=== PATIENT | male | born 1950 | race Caucasian/White ===

== ENCOUNTER 2018-02-14 10:46 | Emergency (ER) | payer MEDICARE, MEDICAID ==
[~2018-02-14] VITALS: Ht 180.3 cm; Wt 75.0 kg
[~2018-02-14 10:46] MED LIST: ASPI-1264 PO; MULT-1131 PO
[2018-02-14 13:10] LABS: CLARITY,URINE CLEAR (Clear); COLOR,URINE YELLOW (Yellow); GLUCOSE, URINE NEGATIVE (Neg); KETONES,URINE NEGATIVE (Neg); LEUKOCYTE ESTERASE ,URINE NEGATIVE (Neg); NITRITES, URINE NEGATIVE (Neg); OCCULT BLOOD,URINE LARGE (Neg); PH,URINE 6.5 (4.8-8.0); PROTEIN,URINE NEGATIVE (Neg); UA COLLECTION TYPE STRAIGHT CATH; UROBILINOGEN,URINE 0.2 E.U/dL (0.2-1.0)
[2018-02-14 13:17] LABS: MUCUS STRANDS NONE SEEN /LPF (Neg); SQUAMOUS EPITHELIAL CELL,UR NONE SEEN /LPF (FEW)
[2018-02-14 13:19] LABS: RBC,URINE 20-50 /HPF (0-2)
[2018-02-14 13:21] LABS: BACTERIA,URINE FEW /HPF (Neg); WBC,URINE 0-4 /HPF (0-4)
[2018-02-14 13:44] VITALS: BP 132/89
[2018-02-16] MEDS ORDERED: SULF1TAB49 PO (21:30)
== END 2018-02-14 13:47 | disposition home or self-care (01) ==
LOC: ER 10:46
DX: R33.9 Retention of urine, unspecified (principal); R31.9 Hematuria, unspecified; K21.9 Gastro-esophageal reflux disease without esophagitis; G89.29 Other chronic pain; Z90.49 Acquired absence of other specified parts of digestive tract; Z98.890 Other specified postprocedural states; Z79.82 Long term (current) use of aspirin; Z79.899 Other long term (current) drug therapy
CPT/HCPCS: 81001; 99285; P9612

== ENCOUNTER 2018-02-19 20:16 | Emergency (ER) | payer MEDICARE, MEDICAID ==
[~2018-02-19] VITALS: Ht 180.3 cm; Wt 75.0 kg
[~2018-02-19 20:16] MED LIST changes: +SULF1TAB49 PO
[2018-02-19 20:19] VITALS: BP 130/78
[2018-02-19] MEDS ORDERED: normal saline 1000ML IV soln IVB ONE (20:55)
[2018-02-19 21:12] LABS: BASOPHILS % (AUTO) 0.1 % (0-1); EOSINOPHILS # (AUTO) 0.9 X10'3 (0-0.9); EOSINOPHILS % (AUTO) 8.9 % (0-6); HEMATOCRIT 43.3 % (42.0-52.0); HEMOGLOBIN 14.6 g/dl (14.0-17.9); LYMPHOCYTES # (AUTO) 1.3 X10'3 (1.1-4.8); LYMPHOCYTES % (AUTO) 12.4 % (21-51); MEAN CORPUSCULAR HEMOGLOBIN 32.5 PG (27.0-31.0); MEAN CORPUSCULAR HGB CONC 33.8 % (33.0-36.5); MEAN CORPUSCULAR VOLUME 96.1 FL (78-98); MEAN PLATELET VOLUME 7.1 FL (7.4-10.4); MONOCYTES # (AUTO) 0.9 X10'3 (0-0.9); MONOCYTES % (AUTO) 8.5 % (2-12); NEUTROPHILS # (AUTO) 7.2 X10'3 (1.8-7.7); NEUTROPHILS % (AUTO) 70.1 % (42-75); PLATELET COUNT 363 X10'3 (140-440); RED CELL DISTRIBUTION WIDTH 13.7 % (11.5-14.5); WHITE BLOOD COUNT 10.3 X10'3 (4.5-11.0)
[2018-02-19 21:30] LABS: ALANINE AMINOTRANSFERASE 78 U/L (12-78); ALBUMIN 3.4 G/DL (3.4-5.0); ALBUMIN/GLOBULIN RATIO 0.9 (1.1-1.5); ALKALINE PHOSPHATASE 96 IU/L (46-116); ANION GAP 11 (8-16); ASPARTATE AMINO TRANSFERASE 36 U/L (10-37); BILIRUBIN,TOTAL 0.3 MG/DL (0.1-1.0); BLOOD UREA NITROGEN 16 MG/DL (7-18); BUN/CREATININE RATIO 13.8 (5.4-32.0); CALCIUM 8.4 MG/DL (8.5-10.1); CHLORIDE 105 MMOL/L (99-107); CREATININE 1.16 MG/DL (0.60-1.10); GLUCOSE 149 MG/DL (70-104); POTASSIUM 3.7 MMOL/L (3.5-5.1); SODIUM 140 MMOL/L (135-145); TOTAL CARBON DIOXIDE 24.2 MMOL/L (24-32); eGFR 63 ML/MIN
[2018-02-19 21:36] LABS: PARTIAL THROMBOPLASTIN TIME 29 SECONDS (22-32); PROTHROMBIN TIME 10.2 SECONDS (9.0-12.0)
[2018-02-19] MEDS ORDERED: iohexol 300mg/ml 100ml inj. ONE (21:38)
[2018-02-19 21:48] LABS: CLARITY,URINE CLOUDY (Clear); COLOR,URINE AMBER (Yellow); GLUCOSE, URINE NEGATIVE (Neg); KETONES,URINE NEGATIVE (Neg); LEUKOCYTE ESTERASE ,URINE TRACE (Neg); OCCULT BLOOD,URINE LARGE (Neg); PROTEIN,URINE >=300 mg/dl (Neg); UROBILINOGEN,URINE 0.2 E.U/dL (0.2-1.0)
[2018-02-19 21:49] LABS: UA COLLECTION TYPE FOLEY CATH
[2018-02-19 21:51] LABS: NITRITES, URINE NEGATIVE (Neg)
[2018-02-19 21:53] LABS: AMORPHOUS URATES 2+; BACTERIA,URINE FEW /HPF (Neg); RBC,URINE TNTC /HPF (0-2); SQUAMOUS EPITHELIAL CELL,UR FEW /LPF (FEW)
[2018-02-19 21:54] LABS: WBC,URINE 0-4 /HPF (0-4)
== END 2018-02-19 23:18 | disposition home or self-care (01) ==
LOC: ER 20:17
DX: R31.0 Gross hematuria (principal); K21.9 Gastro-esophageal reflux disease without esophagitis; G89.29 Other chronic pain; N18.9 Chronic kidney disease, unspecified; Z90.49 Acquired absence of other specified parts of digestive tract; Z98.890 Other specified postprocedural states; Z79.82 Long term (current) use of aspirin; Z79.899 Other long term (current) drug therapy
CPT/HCPCS: 36415; 74177; 80053; 81001; 85025; 85610; 85730; 87088; 99285; J7030; Q9967

== ENCOUNTER 2019-05-02 05:32 | Emergency (ER) | payer MEDICARE, MEDICAID ==
[~2019-05-02] VITALS: Ht 180.3 cm; Wt 75.0 kg
[~2019-05-02 05:32] MED LIST changes: -ASPI-1264 PO; +ATOR40TA PO; +COMMODE; +DOCU-28 PO; +FLO0.4C PO; +HYDR-4383 PO; -SULF1TAB49 PO
[2019-05-02] MEDS ORDERED: ringers solution, lacted 1,000 ML IV ONE (06:35)
[2019-05-02 06:42] LABS: CLARITY,URINE TURBID (Clear); COLOR,URINE YELLOW (Yellow); GLUCOSE, URINE NEGATIVE (Neg); KETONES,URINE NEGATIVE (Neg); LEUKOCYTE ESTERASE ,URINE MODERATE (Neg); NITRITES, URINE POSITIVE (Neg); OCCULT BLOOD,URINE TRACE-INTACT (Neg); PH,URINE 6.5 (4.8-8.0); PROTEIN,URINE NEGATIVE (Neg); UROBILINOGEN,URINE 0.2 E.U/dL (0.2-1.0)
[2019-05-02 06:45] LABS: UA COLLECTION TYPE OTHER
[2019-05-02 07:04] LABS: BASOPHILS # (AUTO) 0.1 X10'3 (0-0.2); BASOPHILS % (AUTO) 0.6 % (0-1); EOSINOPHILS # (AUTO) 0.4 X10'3 (0-0.9); EOSINOPHILS % (AUTO) 4.7 % (0-6); HEMATOCRIT 41.2 % (42.0-52.0); LYMPHOCYTES # (AUTO) 1.3 X10'3 (1.1-4.8); LYMPHOCYTES % (AUTO) 14.3 % (21-51); MEAN CORPUSCULAR HEMOGLOBIN 31.5 PG (27.0-31.0); MEAN CORPUSCULAR VOLUME 92.7 FL (78-98); MEAN PLATELET VOLUME 6.8 FL (7.4-10.4); MONOCYTES % (AUTO) 11.2 % (2-12); NEUTROPHILS # (AUTO) 6.3 X10'3 (1.8-7.7); NEUTROPHILS % (AUTO) 69.2 % (42-75); PLATELET COUNT 475 X10'3 (140-440); RED BLOOD COUNT 4.45 X10'6 (4.70-6.10); RED CELL DISTRIBUTION WIDTH 13.1 % (11.5-14.5); WHITE BLOOD COUNT 9.1 X10'3 (4.5-11.0)
[2019-05-02 07:10] LABS: PARTIAL THROMBOPLASTIN TIME 31 SECONDS (22-32)
[2019-05-02 07:11] LABS: ALANINE AMINOTRANSFERASE 38 U/L (12-78); ALBUMIN 3.2 G/DL (3.4-5.0); ALBUMIN/GLOBULIN RATIO 0.8 (1.1-1.5); ALKALINE PHOSPHATASE 89 IU/L (46-116); ANION GAP 7 (8-16); ASPARTATE AMINO TRANSFERASE 21 U/L (10-37); BILIRUBIN,TOTAL 0.4 MG/DL (0.1-1.0); BLOOD UREA NITROGEN 16 MG/DL (7-18); BUN/CREATININE RATIO 14.4 (5.4-32.0); CALCIUM 8.9 MG/DL (8.5-10.1); CHLORIDE 108 MMOL/L (99-107); CREATININE 1.11 MG/DL (0.60-1.10); GLUCOSE 98 MG/DL (70-104); POTASSIUM 3.8 MMOL/L (3.5-5.1); SODIUM 143 MMOL/L (135-145); TOTAL CARBON DIOXIDE 27.8 MMOL/L (24-32); TOTAL PROTEIN 7.4 G/DL (6.4-8.2); eGFR 66 ML/MIN
[2019-05-02 07:46] LABS: BACTERIA,URINE 2+ /HPF (Neg); RBC,URINE 0-2 /HPF (0-2); SQUAMOUS EPITHELIAL CELL,UR NONE SEEN /LPF (FEW)
[2019-05-02 07:47] LABS: MUCUS STRANDS MANY /LPF (Neg)
[2019-05-02 07:50] LABS: AMORPHOUS PHOSPHATES 2+; WBC,URINE 50-100 /HPF (0-4)
[2019-05-02] MEDS ORDERED: CefTRIAXone 2gm/D5W 50ml 50 ML IV SCH (08:10)
[2019-05-02] MEDS ORDERED: CEPH-572 PO (08:10)
[2019-05-02] MEDS ORDERED: CefTRIAXone 2gm/D5W 50ml 50 ML IV ONE (08:13)
[2019-05-02 08:54] VITALS: BP 123/59
== END 2019-05-02 08:56 | disposition home or self-care (01) ==
LOC: ER 05:33
DX: N39.0 Urinary tract infection, site not specified (principal); R42 Dizziness and giddiness; G80.9 Cerebral palsy, unspecified; K21.9 Gastro-esophageal reflux disease without esophagitis; G89.29 Other chronic pain; F41.9 Anxiety disorder, unspecified; R79.1 Abnormal coagulation profile; Z90.49 Acquired absence of other specified parts of digestive tract; Z98.890 Other specified postprocedural states; Z79.899 Other long term (current) drug therapy
CPT/HCPCS: 36415; 71045; 80053; 81001; 83605; 83735; 84145; 85025; 85610; 85730; 87040; 87077; 87088; 87186; 87502; 87503; 93005; 96361; 96365; 99284; J0696; J7120

== ENCOUNTER 2019-05-04 13:04 | Emergency (ER) | payer MEDICARE, MEDICAID ==
[~2019-05-04] VITALS: Ht 180.3 cm; Wt 74.1 kg
[~2019-05-04 13:04] MED LIST changes: +CEPH-572 PO
[2019-05-04] MEDS ORDERED: cephalexin 250mg capsule PO ONE (16:05)
[2019-05-04 16:14] VITALS: BP 140/71
== END 2019-05-04 18:36 | disposition home or self-care (01) ==
LOC: ER 13:05
DX: R20.8 Other disturbances of skin sensation (principal); M79.604 Pain in right leg; G80.9 Cerebral palsy, unspecified; G89.29 Other chronic pain; F41.9 Anxiety disorder, unspecified; K21.9 Gastro-esophageal reflux disease without esophagitis; Z90.49 Acquired absence of other specified parts of digestive tract; Z98.890 Other specified postprocedural states; Z79.899 Other long term (current) drug therapy
CPT/HCPCS: 93922; 93926; 99284

== ENCOUNTER 2019-05-21 05:43 | Emergency (ER) | payer MEDICARE, MEDICAID ==
[~2019-05-21] VITALS: Ht 180.3 cm; Wt 75.0 kg
[~2019-05-21 05:43] MED LIST changes: -CEPH-572 PO
[2019-05-21 07:18] LABS: BASOPHILS % (AUTO) 0.3 % (0-1); EOSINOPHILS # (AUTO) 0.3 X10'3 (0-0.9); EOSINOPHILS % (AUTO) 2.6 % (0-6); HEMATOCRIT 38.8 % (42.0-52.0); HEMOGLOBIN 13.3 g/dl (14.0-17.9); LYMPHOCYTES # (AUTO) 0.9 X10'3 (1.1-4.8); LYMPHOCYTES % (AUTO) 7.5 % (21-51); MEAN CORPUSCULAR HEMOGLOBIN 31.6 PG (27.0-31.0); MEAN CORPUSCULAR HGB CONC 34.3 g/dL (33.0-36.5); MEAN CORPUSCULAR VOLUME 92.2 FL (78-98); MEAN PLATELET VOLUME 6.5 FL (7.4-10.4); MONOCYTES # (AUTO) 0.9 X10'3 (0-0.9); MONOCYTES % (AUTO) 7.8 % (2-12); NEUTROPHILS # (AUTO) 9.6 X10'3 (1.8-7.7); NEUTROPHILS % (AUTO) 81.8 % (42-75); PLATELET COUNT 450 X10'3 (140-440); RED BLOOD COUNT 4.21 X10'6 (4.70-6.10); WHITE BLOOD COUNT 11.8 X10'3 (4.5-11.0)
[2019-05-21 07:29] LABS: PARTIAL THROMBOPLASTIN TIME 33 SECONDS (22-32)
[2019-05-21 07:32] LABS: ALANINE AMINOTRANSFERASE 26 U/L (12-78); ALBUMIN 3.2 G/DL (3.4-5.0); ALBUMIN/GLOBULIN RATIO 0.7 (1.1-1.5); ALKALINE PHOSPHATASE 86 IU/L (46-116); ANION GAP 8 (8-16); ASPARTATE AMINO TRANSFERASE 19 U/L (10-37); BILIRUBIN,TOTAL 0.6 MG/DL (0.1-1.0); BLOOD UREA NITROGEN 29 MG/DL (7-18); BUN/CREATININE RATIO 25.2 (5.4-32.0); CALCIUM 9.4 MG/DL (8.5-10.1); CHLORIDE 103 MMOL/L (99-107); CREATININE 1.15 MG/DL (0.60-1.10); GLUCOSE 99 MG/DL (70-104); POTASSIUM 4.4 MMOL/L (3.5-5.1); SODIUM 137 MMOL/L (135-145); TOTAL CARBON DIOXIDE 25.9 MMOL/L (24-32); TOTAL PROTEIN 7.7 G/DL (6.4-8.2); eGFR 63 ML/MIN
[2019-05-21] MEDS ORDERED: enoxaparin 100mg/ml syringe SUBCUT ONE (08:15)
[2019-05-21] MEDS ORDERED: APIX5TAB3 PO (08:38)
[2019-05-21 08:56] VITALS: BP 121/79
== END 2019-05-21 09:02 | disposition home or self-care (01) ==
LOC: ER 05:44
DX: I82.401 Acute embolism and thrombosis of unspecified deep veins of right lower extremity (principal); C79.89 Secondary malignant neoplasm of other specified sites; N18.9 Chronic kidney disease, unspecified; K21.9 Gastro-esophageal reflux disease without esophagitis; G89.29 Other chronic pain; F41.9 Anxiety disorder, unspecified; Z90.49 Acquired absence of other specified parts of digestive tract; Z85.51 Personal history of malignant neoplasm of bladder; Z98.890 Other specified postprocedural states; Z79.01 Long term (current) use of anticoagulants; Z79.899 Other long term (current) drug therapy
CPT/HCPCS: 36415; 80053; 85025; 85610; 85730; 93971; 96372; 99285; J1650

== ENCOUNTER 2019-05-24 02:23 | Emergency (ER) | payer MEDICARE, MEDICAID ==
[~2019-05-24] VITALS: Ht 180.3 cm; Wt 75.0 kg
[~2019-05-24 02:23] MED LIST changes: +APIX5TAB3 PO
--- NOTE | 2019-05-24 02:40 | NUR ---
EKG DONE BY ULI HERNANDEZ
--- NOTE | 2019-05-24 02:53 | NUR ---
CHEST X RAY AT BEDSIDE
[2019-05-24 03:01] LABS: BASOPHILS # (AUTO) 0.1 X10'3 (0-0.2); BASOPHILS % (AUTO) 0.6 % (0-1); EOSINOPHILS # (AUTO) 0.5 X10'3 (0-0.9); EOSINOPHILS % (AUTO) 5.5 % (0-6); HEMATOCRIT 35.1 % (42.0-52.0); HEMOGLOBIN 12.3 g/dl (14.0-17.9); LYMPHOCYTES # (AUTO) 1.5 X10'3 (1.1-4.8); LYMPHOCYTES % (AUTO) 15.8 % (21-51); MEAN CORPUSCULAR HEMOGLOBIN 32.1 PG (27.0-31.0); MEAN CORPUSCULAR VOLUME 91.7 FL (78-98); MEAN PLATELET VOLUME 6.4 FL (7.4-10.4); MONOCYTES # (AUTO) 0.9 X10'3 (0-0.9); MONOCYTES % (AUTO) 9.7 % (2-12); NEUTROPHILS # (AUTO) 6.5 X10'3 (1.8-7.7); NEUTROPHILS % (AUTO) 68.4 % (42-75); PLATELET COUNT 488 X10'3 (140-440); RED BLOOD COUNT 3.83 X10'6 (4.70-6.10); RED CELL DISTRIBUTION WIDTH 12.8 % (11.5-14.5); WHITE BLOOD COUNT 9.4 X10'3 (4.5-11.0)
[2019-05-24 03:13] LABS: ALANINE AMINOTRANSFERASE 37 U/L (12-78); ALBUMIN 2.8 G/DL (3.4-5.0); ALBUMIN/GLOBULIN RATIO 0.6 (1.1-1.5); ALKALINE PHOSPHATASE 83 IU/L (46-116); ANION GAP 9 (8-16); ASPARTATE AMINO TRANSFERASE 28 U/L (10-37); BILIRUBIN,TOTAL 0.3 MG/DL (0.1-1.0); BLOOD UREA NITROGEN 23 MG/DL (7-18); CALCIUM 8.9 MG/DL (8.5-10.1); CHLORIDE 106 MMOL/L (99-107); GLUCOSE 99 MG/DL (70-104); POTASSIUM 3.8 MMOL/L (3.5-5.1); SODIUM 140 MMOL/L (135-145); TOTAL CARBON DIOXIDE 24.8 MMOL/L (24-32); TOTAL PROTEIN 7.2 G/DL (6.4-8.2); eGFR 74 ML/MIN
--- NOTE | 2019-05-24 03:20 | NUR ---
PT RESTING PEACEFULLY ON HIS RIGHT SIDE
--- NOTE | 2019-05-24 05:20 | NUR ---
POSITIONED PT TO HIS RIGHT SIDE . AND DRAINED HIS UROSTOMY BAG 20CC OUTPUT Addendum: 05/24/19 at 0522 by LSTOCKTON REPOSITONED PT TO HIS LEFT SIDE ABD DRAIN UROSTOMY BAG 200 CC OF OUTPUT URINE NOTED
[2019-05-24 05:45] VITALS: BP 105/59
--- NOTE | 2019-05-24 05:46 | NUR ---
3 HR TROPONIN DRAWN AND SENT TO LAB
--- NOTE | 2019-05-24 05:47 | NUR ---
PT INSIGHTS MANAGER AMBIKA HAS REMAINED AT THE BEDSIDE THE ENTIRE TIME PT HAS BEEN IN THE ER. BENNY RAMIREZ ALSO WAS PRESANT ON UNIT TILL ABOUT 315 AM BEFORE LEAVING FOR HOME SHE WAS A GREAT HISTORIAN ON PT BEHALF AND CAN BE REACHED AT [phone]
== END 2019-05-24 11:35 | disposition home or self-care (01) ==
LOC: ER 02:23
DX: R07.89 Other chest pain (principal); K21.9 Gastro-esophageal reflux disease without esophagitis; G89.29 Other chronic pain; Z86.718 Personal history of other venous thrombosis and embolism; Z90.49 Acquired absence of other specified parts of digestive tract; Z98.890 Other specified postprocedural states; Z79.899 Other long term (current) drug therapy
CPT/HCPCS: 36415; 71045; 80053; 84484; 85025; 93005; 99285

== ENCOUNTER 2019-06-03 03:19 | Emergency (ER) | payer MEDICARE, MEDICAID ==
[~2019-06-03] VITALS: Ht 177.8 cm; Wt 74.1 kg
[2019-06-03] MEDS ORDERED: ketorolac trometh. 30mg/ml inj. IV ONE (03:30)
[2019-06-03] MEDS ORDERED: normal saline 1000ML IV soln IVB ONE (03:30)
[2019-06-03 03:56] LABS: BASOPHILS # (AUTO) 0.1 X10'3 (0-0.2); BASOPHILS % (AUTO) 0.6 % (0-1); EOSINOPHILS # (AUTO) 0.3 X10'3 (0-0.9); EOSINOPHILS % (AUTO) 3.1 % (0-6); HEMATOCRIT 34.4 % (42.0-52.0); HEMOGLOBIN 11.8 g/dl (14.0-17.9); LYMPHOCYTES % (AUTO) 9.4 % (21-51); MEAN CORPUSCULAR HEMOGLOBIN 31.2 PG (27.0-31.0); MEAN CORPUSCULAR HGB CONC 34.4 g/dL (33.0-36.5); MEAN CORPUSCULAR VOLUME 90.8 FL (78-98); MEAN PLATELET VOLUME 6.2 FL (7.4-10.4); MONOCYTES # (AUTO) 1.2 X10'3 (0-0.9); MONOCYTES % (AUTO) 11.8 % (2-12); NEUTROPHILS # (AUTO) 7.7 X10'3 (1.8-7.7); NEUTROPHILS % (AUTO) 75.1 % (42-75); PLATELET COUNT 548 X10'3 (140-440); RED BLOOD COUNT 3.79 X10'6 (4.70-6.10); WHITE BLOOD COUNT 10.2 X10'3 (4.5-11.0)
[2019-06-03 04:07] LABS: ALANINE AMINOTRANSFERASE 19 U/L (12-78); ALBUMIN 2.8 G/DL (3.4-5.0); ALBUMIN/GLOBULIN RATIO 0.7 (1.1-1.5); ALKALINE PHOSPHATASE 72 IU/L (46-116); ANION GAP 8 (8-16); ASPARTATE AMINO TRANSFERASE 22 U/L (10-37); BILIRUBIN,TOTAL 0.5 MG/DL (0.1-1.0); BLOOD UREA NITROGEN 19 MG/DL (7-18); BUN/CREATININE RATIO 17.3 (5.4-32.0); CALCIUM 9.1 MG/DL (8.5-10.1); CHLORIDE 105 MMOL/L (99-107); GLUCOSE 103 MG/DL (70-104); SODIUM 139 MMOL/L (135-145); TOTAL CARBON DIOXIDE 26.1 MMOL/L (24-32); TOTAL PROTEIN 6.9 G/DL (6.4-8.2); eGFR 67 ML/MIN
[2019-06-03 04:11] LABS: CLARITY,URINE CLOUDY (Clear); COLOR,URINE YELLOW (Yellow); GLUCOSE, URINE NEGATIVE (Neg); KETONES,URINE NEGATIVE (Neg); LEUKOCYTE ESTERASE ,URINE LARGE (Neg); NITRITES, URINE POSITIVE (Neg); OCCULT BLOOD,URINE LARGE (Neg); PROTEIN,URINE TRACE mg/dl (Neg); UROBILINOGEN,URINE 0.2 E.U/dL (0.2-1.0)
[2019-06-03 04:18] LABS: UA COLLECTION TYPE OTHER
[2019-06-03 04:21] LABS: BACTERIA,URINE 2+ /HPF (Neg); RENAL CELLS, URINE FEW /HPF; SQUAMOUS EPITHELIAL CELL,UR NONE SEEN /LPF (FEW)
--- NOTE | 2019-06-03 04:30 | NUR ---
VASCULAR AT BEDSIDE
[2019-06-03] MEDS ORDERED: orphenadrine citrate 60mg/2ml inj. IM ONE (04:35)
[2019-06-03] MEDS ORDERED: CefTRIAXone 2gm/D5W 50ml 50 ML IV ONE (04:35)
[2019-06-03] MEDS ORDERED: magnesium 2GM in 50ml NS 50 ML IV ONE (04:35)
[2019-06-03] MEDS ORDERED: CEPH250T PO (04:56)
[2019-06-03 04:57] VITALS: BP 112/66
== END 2019-06-03 05:13 | disposition home or self-care (01) ==
LOC: ER 03:19
DX: R25.2 Cramp and spasm (principal); K21.9 Gastro-esophageal reflux disease without esophagitis; G89.29 Other chronic pain; F41.9 Anxiety disorder, unspecified; Z85.9 Personal history of malignant neoplasm, unspecified; Z86.718 Personal history of other venous thrombosis and embolism; Z90.49 Acquired absence of other specified parts of digestive tract; Z98.890 Other specified postprocedural states; Z79.01 Long term (current) use of anticoagulants; Z79.899 Other long term (current) drug therapy
CPT/HCPCS: 36415; 80053; 81001; 83735; 85025; 87077; 87088; 87186; 93971; 96365; 96372; 96375; 99284; J0696; J1885; J2360; J3475; J7030

== ENCOUNTER 2019-07-21 06:54 | Day surgery (SDC) | payer MEDICARE, MEDICAID ==
[~2019-07-21] VITALS: Ht 180.3 cm; Wt 66.8 kg
[2019-07-21] MEDS ORDERED: ceFAZolin 1GM/D5W- ADD-VANTAGE 50 ML IV ONE (07:30)
[2019-07-21] MEDS ORDERED: normal saline 1000ml 1,000 ML IV PRN (07:30)
[2019-07-21 08:19] LABS: BASOPHILS # (AUTO) 0.1 X10'3 (0-0.2); BASOPHILS % (AUTO) 1.2 % (0-1); EOSINOPHILS # (AUTO) 1.1 X10'3 (0-0.9); EOSINOPHILS % (AUTO) 9.1 % (0-6); LYMPHOCYTES # (AUTO) 0.8 X10'3 (1.1-4.8); LYMPHOCYTES % (AUTO) 6.8 % (21-51); MEAN CORPUSCULAR HEMOGLOBIN 29.3 PG (27.0-31.0); MEAN CORPUSCULAR HGB CONC 33.3 g/dL (33.0-36.5); MEAN CORPUSCULAR VOLUME 87.9 FL (78-98); MEAN PLATELET VOLUME 6.6 FL (7.4-10.4); MONOCYTES # (AUTO) 1.3 X10'3 (0-0.9); MONOCYTES % (AUTO) 10.9 % (2-12); NEUTROPHILS # (AUTO) 8.5 X10'3 (1.8-7.7); PLATELET COUNT 474 X10'3 (140-440); RED BLOOD COUNT 3.42 X10'6 (4.70-6.10); RED CELL DISTRIBUTION WIDTH 14.7 % (11.5-14.5); WHITE BLOOD COUNT 11.8 X10'3 (4.5-11.0)
[2019-07-21 08:29] LABS: ALBUMIN 3.3 G/DL (3.4-5.0); ANION GAP 11 (8-16); BLOOD UREA NITROGEN 92 MG/DL (7-18); BUN/CREATININE RATIO 11.2 (5.4-32.0); CALCIUM 8.9 MG/DL (8.5-10.1); CHLORIDE 104 MMOL/L (99-107); CREATININE 8.22 MG/DL (0.60-1.10); GLUCOSE 94 MG/DL (70-104); POTASSIUM 3.8 MMOL/L (3.5-5.1); SODIUM 137 MMOL/L (135-145); TOTAL CARBON DIOXIDE 21.8 MMOL/L (24-32); eGFR 7 ML/MIN
[2019-07-21 08:34] VITALS: BP 137/79
[2019-07-21] MEDS ORDERED: iohexol 300 MG/1 ML 50ml polymer ONE (08:43)
[2019-07-21] MEDS ORDERED: LIDOcaine 1%/PF 5ML 10 MG/ML VIAL ONE ×2 (08:43→09:53)
[2019-07-21] MEDS ORDERED: midazolam 2 mg/2 ml injection ONE ×2 (08:43→09:57)
[2019-07-21] MEDS ORDERED: fentaNYL/PF 50MCG/1 ML 2ML syringe ONE ×2 (08:43→09:57)
[2019-07-21 10:43] VITALS: BP 110/70
[2019-07-21 10:46] VITALS: BP 119/75
[2019-07-21 11:19] VITALS: BP 104/66
== END 2019-07-21 11:40 | disposition home or self-care (01) ==
LOC: MED 3N 06:54 → SSTAY O 06:54
PROVIDERS: ATTEND Radiology Vascular & Interventional Radiology
DX: N13.0 Hydronephrosis with ureteropelvic junction obstruction (principal); Z85.51 Personal history of malignant neoplasm of bladder; G80.9 Cerebral palsy, unspecified; Z98.890 Other specified postprocedural states; Z90.49 Acquired absence of other specified parts of digestive tract; Z79.899 Other long term (current) drug therapy; Z87.440 Personal history of urinary (tract) infections
CPT/HCPCS: 36415; 50432; 80048; 85025; 99152; 99153; J2250; J3010; Q9967; C1729; C1769

== ENCOUNTER 2019-08-04 06:26 | Day surgery (SDC) | payer MEDICARE, MEDICAID ==
[~2019-08-04] VITALS: Ht 180.3 cm; Wt 65.9 kg
[2019-08-04] VITALS (11 sets, daily range): BP systolic 90–109; BP diastolic 58–70
[~2019-08-04 06:26] MED LIST changes: -APIX5TAB3 PO; -COMMODE; -DOCU-28 PO; -FLO0.4C PO; -HYDR-4383 PO; -MULT-1131 PO
[2019-08-04] MEDS ORDERED: ceFAZolin 1GM/D5W- ADD-VANTAGE 50 ML IV ONE (07:05)
[2019-08-04] MEDS ORDERED: albumin 25% 100mL bottle x 1 IV PRN (07:05)
[2019-08-04] MEDS ORDERED: normal saline 1000ml 1,000 ML IV PRN (07:05)
[2019-08-04 07:47] LABS: BASOPHILS # (AUTO) 0.1 X10'3 (0-0.2); BASOPHILS % (AUTO) 0.7 % (0-1); EOSINOPHILS # (AUTO) 0.9 X10'3 (0-0.9); EOSINOPHILS % (AUTO) 6.9 % (0-6); HEMATOCRIT 25.9 % (42.0-52.0); HEMOGLOBIN 8.7 g/dl (14.0-17.9); LYMPHOCYTES # (AUTO) 0.9 X10'3 (1.1-4.8); LYMPHOCYTES % (AUTO) 7.1 % (21-51); MEAN CORPUSCULAR HEMOGLOBIN 29.4 PG (27.0-31.0); MEAN CORPUSCULAR HGB CONC 33.5 g/dL (33.0-36.5); MEAN PLATELET VOLUME 6.5 FL (7.4-10.4); MONOCYTES # (AUTO) 1.5 X10'3 (0-0.9); MONOCYTES % (AUTO) 11.9 % (2-12); NEUTROPHILS # (AUTO) 9.4 X10'3 (1.8-7.7); NEUTROPHILS % (AUTO) 73.4 % (42-75); PLATELET COUNT 460 X10'3 (140-440); RED BLOOD COUNT 2.94 X10'6 (4.70-6.10); RED CELL DISTRIBUTION WIDTH 15.2 % (11.5-14.5); WHITE BLOOD COUNT 12.8 X10'3 (4.5-11.0)
[2019-08-04] MEDS ORDERED: MELA3TAB11 PO (07:56)
[2019-08-04] MEDS ORDERED: ONDA8TAB6 PO (07:56)
[2019-08-04] MEDS ORDERED: MULT-1085 PO (07:56)
[2019-08-04] MEDS ORDERED: DOCU-148 PO (07:56)
[2019-08-04] MEDS ORDERED: HYDR-4353 PO (07:56)
[2019-08-04] MEDS ORDERED: RIVA20TA PO (07:56)
[2019-08-04 08:01] LABS: ALBUMIN 2.7 G/DL (3.4-5.0); ANION GAP 9 (8-16); BLOOD UREA NITROGEN 58 MG/DL (7-18); CALCIUM 8.7 MG/DL (8.5-10.1); CHLORIDE 102 MMOL/L (99-107); CREATININE 5.78 MG/DL (0.60-1.10); GLUCOSE 96 MG/DL (70-104); POTASSIUM 4.5 MMOL/L (3.5-5.1); SODIUM 134 MMOL/L (135-145); TOTAL CARBON DIOXIDE 22.9 MMOL/L (24-32); eGFR 10 ML/MIN
[2019-08-04] MEDS ORDERED: LIDOcaine 1%/PF 5ML 10 MG/ML VIAL ONE (08:36)
[2019-08-04] MEDS ORDERED: midazolam 2 mg/2 ml injection ONE (08:36)
[2019-08-04] MEDS ORDERED: iohexol 300 MG/1 ML 50ml polymer ONE (08:37)
[2019-08-04] MEDS ORDERED: fentaNYL/PF 50MCG/1 ML 2ML syringe ONE (08:37)
== END 2019-08-04 13:15 | disposition home or self-care (01) ==
LOC: SSTAY O 06:26 → MED 3N 06:26 → SSTAY O 13:15
PROVIDERS: ATTEND Radiology Vascular & Interventional Radiology
DX: Z43.6 Encounter for attention to other artificial openings of urinary tract (principal); N13.30 Unspecified hydronephrosis; G80.9 Cerebral palsy, unspecified; Z79.899 Other long term (current) drug therapy; Z85.51 Personal history of malignant neoplasm of bladder
CPT/HCPCS: 36415; 50435; 80048; 85025; C1729; J2250; J3010; Q9967

== ENCOUNTER 2019-09-17 14:12 | Inpatient (IN) | payer MEDICARE, MEDICAID ==
[~2019-09-17] VITALS: Ht 182.9 cm; Wt 68.2 kg
[~2019-09-17 14:12] MED LIST changes: +DOCU-148 PO; +HYDR-4353 PO; +LEVO250T58 PO; +MELA3TAB11 PO; +METH1TAB32 PO; +MULT-1085 PO; +ONDA8TAB6 PO; +RIVA20TA PO
[2019-09-17] MEDS ORDERED: normal saline 1000ML IV soln IVB ONE (14:35)
[2019-09-17] MEDS ORDERED: acetaminophen 325mg tablet PO ONE (14:45)
[2019-09-17] MEDS ORDERED: vancomycin/NS 1 GM ADD-VANTAGE 250 ML IV ONE (15:00)
[2019-09-17] MEDS ORDERED: piperacillin/tazo 3.375gm/50ml 50 ML IV ONE (15:00)
[2019-09-17 15:16] LABS: EOSINOPHILS # (AUTO) 0.1 X10'3 (0-0.9); EOSINOPHILS % (AUTO) 0.4 % (0-6); HEMOGLOBIN 8.8 g/dl (14.0-17.9)
[2019-09-17 15:18] LABS: BASOPHILS # (AUTO) 0.2 X10'3 (0-0.2); BASOPHILS % (AUTO) 0.8 % (0-1); HEMATOCRIT 27.3 % (42.0-52.0); LYMPHOCYTES # (AUTO) 0.9 X10'3 (1.1-4.8); LYMPHOCYTES % (AUTO) 3.7 % (21-51); MEAN CORPUSCULAR HEMOGLOBIN 28.1 PG (27.0-31.0); MEAN CORPUSCULAR HGB CONC 32.5 g/dL (33.0-36.5); MEAN CORPUSCULAR VOLUME 86.6 FL (78-98); MEAN PLATELET VOLUME 6.7 FL (7.4-10.4); MONOCYTES # (AUTO) 1.6 X10'3 (0-0.9); MONOCYTES % (AUTO) 6.8 % (2-12); NEUTROPHILS % (AUTO) 88.3 % (42-75); PLATELET COUNT 605 X10'3 (140-440); RED BLOOD COUNT 3.15 X10'6 (4.70-6.10); RED CELL DISTRIBUTION WIDTH 15.8 % (11.5-14.5); WHITE BLOOD COUNT 23.8 X10'3 (4.5-11.0)
[2019-09-17 15:33] LABS: ALANINE AMINOTRANSFERASE 21 U/L (12-78); ALBUMIN 2.6 G/DL (3.4-5.0); ALBUMIN/GLOBULIN RATIO 0.6 (1.1-1.5); ALKALINE PHOSPHATASE 75 IU/L (46-116); ANION GAP 10 (8-16); ASPARTATE AMINO TRANSFERASE 17 U/L (10-37); BILIRUBIN,TOTAL 0.5 MG/DL (0.1-1.0); BLOOD UREA NITROGEN 32 MG/DL (7-18); CALCIUM 8.7 MG/DL (8.5-10.1); CHLORIDE 102 MMOL/L (99-107); GLUCOSE 101 MG/DL (70-104); POTASSIUM 4.1 MMOL/L (3.5-5.1); SODIUM 137 MMOL/L (135-145); TOTAL CARBON DIOXIDE 24.8 MMOL/L (24-32); TOTAL PROTEIN 7.2 G/DL (6.4-8.2); eGFR 43 ML/MIN
[2019-09-17 15:38] LABS: CLARITY,URINE CLOUDY (Clear); COLOR,URINE YELLOW (Yellow); GLUCOSE, URINE NEGATIVE (Neg); KETONES,URINE NEGATIVE (Neg); LEUKOCYTE ESTERASE ,URINE LARGE (Neg); NITRITES, URINE NEGATIVE (Neg); OCCULT BLOOD,URINE LARGE (Neg); PROTEIN,URINE 100 mg/dl (Neg); UROBILINOGEN,URINE 0.2 E.U/dL (0.2-1.0)
[2019-09-17 15:43] LABS: UA COLLECTION TYPE OTHER
[2019-09-17 15:44] LABS: WBC,URINE TNTC /HPF (0-4)
[2019-09-17 15:45] LABS: BACTERIA,URINE 3+ /HPF (Neg); MUCUS STRANDS FEW /LPF (Neg); SQUAMOUS EPITHELIAL CELL,UR NONE SEEN /LPF (FEW)
[2019-09-17] MEDS ORDERED: CefTRIAXone 2gm/D5W 50ml 50 ML IV ONE (15:45)
[2019-09-17 15:46] LABS: WBC CLUMPS,URINE MANY /HPF (NEGATIVE)
--- NOTE | 2019-09-17 16:32 | NUR ---
Pt's caregiver is Brisa Cooney. She can be reached at [phone] if we have any questions about the pt.
[2019-09-17] MEDS ORDERED: acetaminophen 325mg tablet PO PRN (18:25)
[2019-09-17] MEDS ORDERED: magnesium 2GM in 50ml NS 50 ML IV PRN (18:25)
[2019-09-17] MEDS ORDERED: magnesium Cl slow-release 64mg tablet PO PRN (18:25)
[2019-09-17] MEDS ORDERED: potassium Cl 20 mEq SR tablet PO PRN ×2 (18:25)
[2019-09-17] MEDS ORDERED: morphine 2 MG/ML inj. syringe IV PRN (18:25)
[2019-09-17] MEDS ORDERED: magnesium 4gm in 100ml NS 100 ML IV PRN (18:25)
[2019-09-17] MEDS ORDERED: mag hydrox/Alum hydrox/simeth 30ml oral suspension PO PRN (18:25)
[2019-09-17] MEDS ORDERED: ondansetron/PF 4mg/2ml inj IV PRN (18:25)
[2019-09-17] MEDS ORDERED: potassium CL 10mEq/100ml bag 100 ML IV PRN ×2 (18:25)
[2019-09-17] MEDS: K and/or MAG REPLACEMENT MC SCH (20:00)
[2019-09-17] MEDS: docusate sod 100mg capsule PO SCH (20:00)
[2019-09-17 20:30] VITALS: BP 85/46
[2019-09-17 20:35] VITALS: BP 96/57
[2019-09-17] MEDS: normal saline 1000ml 1,000 ML IV SCH (21:34)
[2019-09-17 22:00] VITALS: BP 90/48
[2019-09-17 22:10] VITALS: BP 95/52
--- NOTE | 2019-09-18 00:26 | NUR ---
Unable to DART pt, pt cannot answer questions.
[2019-09-18 02:00] VITALS: BP 83/45
[2019-09-18 02:15] VITALS: BP 94/50
[2019-09-18 04:16] LABS: ALBUMIN 2.2 G/DL (3.4-5.0); ANION GAP 8 (8-16); BLOOD UREA NITROGEN 28 MG/DL (7-18); BUN/CREATININE RATIO 16.6 (5.4-32.0); CALCIUM 7.8 MG/DL (8.5-10.1); CHLORIDE 110 MMOL/L (99-107); CREATININE 1.69 MG/DL (0.60-1.10); GLUCOSE 109 MG/DL (70-104); MAGNESIUM 1.8 MG/DL (1.5-2.4); POTASSIUM 3.7 MMOL/L (3.5-5.1); SODIUM 141 MMOL/L (135-145); TOTAL CARBON DIOXIDE 22.7 MMOL/L (24-32); eGFR 41 ML/MIN
[2019-09-18 04:17] LABS: BASOPHILS # (AUTO) 0.1 X10'3 (0-0.2); BASOPHILS % (AUTO) 0.5 % (0-1); EOSINOPHILS # (AUTO) 0.2 X10'3 (0-0.9); EOSINOPHILS % (AUTO) 0.8 % (0-6); HEMATOCRIT 24.5 % (42.0-52.0); HEMOGLOBIN 7.9 g/dl (14.0-17.9); LYMPHOCYTES % (AUTO) 5.2 % (21-51); MEAN CORPUSCULAR HEMOGLOBIN 28.1 PG (27.0-31.0); MEAN CORPUSCULAR HGB CONC 32.3 g/dL (33.0-36.5); MEAN PLATELET VOLUME 6.4 FL (7.4-10.4); MONOCYTES # (AUTO) 1.5 X10'3 (0-0.9); MONOCYTES % (AUTO) 7.8 % (2-12); NEUTROPHILS # (AUTO) 16.8 X10'3 (1.8-7.7); NEUTROPHILS % (AUTO) 85.7 % (42-75); PLATELET COUNT 496 X10'3 (140-440); RED BLOOD COUNT 2.82 X10'6 (4.70-6.10); RED CELL DISTRIBUTION WIDTH 15.5 % (11.5-14.5); WHITE BLOOD COUNT 19.6 X10'3 (4.5-11.0)
[2019-09-18] MEDS: normal saline 1000ml 1,000 ML IV SCH ×3 (04:23→19:54)
[2019-09-18 06:00] VITALS: BP 94/56
--- NOTE | 2019-09-18 06:30 | NUR ---
Patient in room PCU 3011. I have received report from santa chaudhary and had the opportunity to ask questions and assume patient care.
--- NOTE | 2019-09-18 06:40 | NUR ---
Problems reprioritized. Patient report given, questions answered & plan of care reviewed with Lenny RN.
[2019-09-18] MEDS: docusate sod 100mg capsule PO SCH ×3 (07:28→19:30)
[2019-09-18] MEDS: CefTRIAXone/D5W-Rocephin 1gm 50 ML IV SCH (07:39)
[2019-09-18] MEDS: K and/or MAG REPLACEMENT MC SCH ×2 (08:00→20:00)
[2019-09-18 11:00] VITALS: BP 95/64
[2019-09-18] MEDS ORDERED: HYDROcodone/acetaminophen 10/325mg tab PO PRN (11:05)
[2019-09-18] MEDS: multivitamins, therapeutics tablet PO SCH (11:34)
[2019-09-18] MEDS: atorvastatin 10mg tablet PO SCH (11:34)
--- NOTE | 2019-09-18 13:18 | NUR ---
PAGER ID: [phone] MESSAGE: DR. ENGLISH, 3011A/RASTA. ZOFRAN 8MG Q 8 PO ORDERED PER MED REC SHEET. TALKED TO CAREGIVER, BENNY, SHE SAYS THAT IS SUPPOSED TO BE PRN. WE ALSO HAVE ZOFRAN IV PRN ORDERS. NAZIA [id number]
[2019-09-18 15:00] VITALS: BP 100/64
[2019-09-18] MEDS ORDERED: ondansetron 4mg rapidly disintigrating tab PO SCH (16:00)
--- NOTE | 2019-09-18 16:06 | NUR ---
Werner consult: Werner 12; skin intact. Pt admit w/ sepsis and UTI hx cerebral palsy likely non-verbal per MD note today. Hx urinary bladder CA w/ urostomy stoma R abdomen, quadriparesis, and caregiver at home. PO 100% initial heart healthy meal meeting needs so far. LBM 6. No nutrition concerns at this time. Will monitor for additional protein needs or needs for adaptive wear if PO declines given hx and current DX. Rec: 1. continue heart healthy diet 2. monitor for ONS needs if PO declines 3. monitor need for adaptive wear; hx quadriparesis 4. routine bowel care 5. weekly wts Addendum: 09/18/19 at [address] Amended: Links added.
--- NOTE | 2019-09-18 18:30 | NUR ---
Problems reprioritized. Patient report given, questions answered & plan of care reviewed with santa johnson.
[2019-09-18 19:00] VITALS: BP 114/69
[2019-09-18] MEDS: lactobacillus rhamnosus 10,000 MMU CELLS/CAPSULE PO SCH (19:30)
[2019-09-18] MEDS ORDERED: docusate sod 100mg capsule PO SCH (20:00)
[2019-09-18] MEDS: Melatonin 3mg tablet PO SCH (21:50)
[2019-09-18] MEDS: rivaroxaban 20mg tablet PO SCH (21:50)
[2019-09-19 03:00] VITALS: BP 101/69
[2019-09-19] MEDS: normal saline 1000ml 1,000 ML IV SCH ×2 (05:49→15:40)
[2019-09-19 06:00] VITALS: BP 116/75
[2019-09-19 06:17] LABS: BASOPHILS # (AUTO) 0.1 X10'3 (0-0.2); BASOPHILS % (AUTO) 0.7 % (0-1); EOSINOPHILS # (AUTO) 0.8 X10'3 (0-0.9); EOSINOPHILS % (AUTO) 7.4 % (0-6); HEMATOCRIT 24.4 % (42.0-52.0); HEMOGLOBIN 8.1 g/dl (14.0-17.9); LYMPHOCYTES # (AUTO) 0.7 X10'3 (1.1-4.8); LYMPHOCYTES % (AUTO) 6.2 % (21-51); MEAN CORPUSCULAR HEMOGLOBIN 28.7 PG (27.0-31.0); MEAN CORPUSCULAR HGB CONC 33.1 g/dL (33.0-36.5); MEAN CORPUSCULAR VOLUME 86.8 FL (78-98); MEAN PLATELET VOLUME 6.5 FL (7.4-10.4); MONOCYTES # (AUTO) 0.9 X10'3 (0-0.9); MONOCYTES % (AUTO) 8.2 % (2-12); NEUTROPHILS # (AUTO) 8.8 X10'3 (1.8-7.7); NEUTROPHILS % (AUTO) 77.5 % (42-75); PLATELET COUNT 495 X10'3 (140-440); RED BLOOD COUNT 2.82 X10'6 (4.70-6.10); RED CELL DISTRIBUTION WIDTH 16.1 % (11.5-14.5); WHITE BLOOD COUNT 11.4 X10'3 (4.5-11.0)
[2019-09-19 06:30] LABS: ALBUMIN 2.2 G/DL (3.4-5.0); ANION GAP 9 (8-16); BLOOD UREA NITROGEN 19 MG/DL (7-18); BUN/CREATININE RATIO 13.2 (5.4-32.0); CALCIUM 8.4 MG/DL (8.5-10.1); CHLORIDE 111 MMOL/L (99-107); CREATININE 1.44 MG/DL (0.60-1.10); GLUCOSE 90 MG/DL (70-104); MAGNESIUM 1.7 MG/DL (1.5-2.4); POTASSIUM 3.5 MMOL/L (3.5-5.1); SODIUM 143 MMOL/L (135-145); TOTAL CARBON DIOXIDE 22.7 MMOL/L (24-32); eGFR 49 ML/MIN
--- NOTE | 2019-09-19 06:30 | NUR ---
Patient in room PCU 3011. I have received report from GABY GIPSON and had the opportunity to ask questions and assume patient care.
[2019-09-19] MEDS: K and/or MAG REPLACEMENT MC SCH ×2 (08:00→20:00)
[2019-09-19] MEDS: docusate sod 100mg capsule PO SCH ×2 (08:12→20:49)
[2019-09-19] MEDS: lactobacillus rhamnosus 10,000 MMU CELLS/CAPSULE PO SCH ×2 (08:12→20:49)
[2019-09-19] MEDS: atorvastatin 10mg tablet PO SCH (08:13)
[2019-09-19] MEDS: CefTRIAXone/D5W-Rocephin 1gm 50 ML IV SCH (08:13)
[2019-09-19] MEDS: multivitamins, therapeutics tablet PO SCH (08:13)
[2019-09-19 11:00] VITALS: BP 114/67
[2019-09-19 15:00] VITALS: BP 100/77
--- NOTE | 2019-09-19 15:09 | NUR ---
Student Medication Administration: For this medication-pass time frame, all medication were reviewed, dispensed, administered and documented per hospital policy by GUMARO ELIZONDO STUDENT.
--- NOTE | 2019-09-19 15:10 | NUR ---
Student documentation: I have reviewed and agree with all interventions, assessments performed and documented by GUMARO ELIZONDO STUDENT.
--- NOTE | 2019-09-19 17:48 | NUR ---
Student documentation: I have reviewed and agree with all interventions, assessments performed and documented by GUMARO ELIZONDO STUDENT.
[2019-09-19 18:00] VITALS: BP 114/80
--- NOTE | 2019-09-19 18:40 | NUR ---
Problems reprioritized. Patient report given, questions answered & plan of care reviewed with santa petty.
[2019-09-19] MEDS: Melatonin 3mg tablet PO SCH (20:49)
[2019-09-19] MEDS: rivaroxaban 20mg tablet PO SCH (20:49)
[2019-09-19 22:00] VITALS: BP 111/73
[2019-09-20 02:00] VITALS: BP 119/76
[2019-09-20] MEDS: normal saline 1000ml 1,000 ML IV SCH ×2 (02:42→13:07)
[2019-09-20 06:00] VITALS: BP 128/82
--- NOTE | 2019-09-20 06:33 | NUR ---
Problems reprioritized. Patient report given, questions answered & plan of care reviewed with GABY KIMBROUGH.
--- NOTE | 2019-09-20 06:49 | NUR ---
Patient in room PCU 3011. I have received report from GABY GRANT and had the opportunity to ask questions and assume patient care.
[2019-09-20 07:00] LABS: BASOPHILS # (AUTO) 0.1 X10'3 (0-0.2); BASOPHILS % (AUTO) 0.6 % (0-1); EOSINOPHILS # (AUTO) 0.9 X10'3 (0-0.9); HEMATOCRIT 24.9 % (42.0-52.0); HEMOGLOBIN 8.3 g/dl (14.0-17.9); LYMPHOCYTES # (AUTO) 0.8 X10'3 (1.1-4.8); LYMPHOCYTES % (AUTO) 8.6 % (21-51); MEAN CORPUSCULAR HEMOGLOBIN 29.3 PG (27.0-31.0); MEAN CORPUSCULAR HGB CONC 33.6 g/dL (33.0-36.5); MEAN CORPUSCULAR VOLUME 87.3 FL (78-98); MEAN PLATELET VOLUME 6.5 FL (7.4-10.4); MONOCYTES % (AUTO) 10.5 % (2-12); NEUTROPHILS # (AUTO) 6.6 X10'3 (1.8-7.7); NEUTROPHILS % (AUTO) 70.3 % (42-75); PLATELET COUNT 522 X10'3 (140-440); RED BLOOD COUNT 2.85 X10'6 (4.70-6.10); RED CELL DISTRIBUTION WIDTH 15.6 % (11.5-14.5); WHITE BLOOD COUNT 9.4 X10'3 (4.5-11.0)
[2019-09-20 07:16] LABS: ALBUMIN 2.4 G/DL (3.4-5.0); ANION GAP 10 (8-16); BLOOD UREA NITROGEN 17 MG/DL (7-18); BUN/CREATININE RATIO 12.3 (5.4-32.0); CALCIUM 8.5 MG/DL (8.5-10.1); CHLORIDE 111 MMOL/L (99-107); CREATININE 1.38 MG/DL (0.60-1.10); GLUCOSE 88 MG/DL (70-104); MAGNESIUM 1.6 MG/DL (1.5-2.4); POTASSIUM 3.5 MMOL/L (3.5-5.1); SODIUM 144 MMOL/L (135-145); TOTAL CARBON DIOXIDE 22.6 MMOL/L (24-32); eGFR 51 ML/MIN
[2019-09-20] MEDS: K and/or MAG REPLACEMENT MC SCH ×2 (07:22→18:55)
[2019-09-20] MEDS: CefTRIAXone/D5W-Rocephin 1gm 50 ML IV SCH (07:50)
[2019-09-20] MEDS: atorvastatin 10mg tablet PO SCH (07:52)
[2019-09-20] MEDS: lactobacillus rhamnosus 10,000 MMU CELLS/CAPSULE PO SCH ×2 (07:54→20:04)
[2019-09-20] MEDS: docusate sod 100mg capsule PO SCH ×2 (07:55→20:04)
[2019-09-20] MEDS: multivitamins, therapeutics tablet PO SCH (07:55)
[2019-09-20 11:08] VITALS: BP 124/82
[2019-09-20] MEDS: HYDROcodone/acetaminophen 5mg/325mg tablet PO PRN (12:40)
--- NOTE | 2019-09-20 14:13 | NUR ---
called pts caregiver, Dafne. Advised pt will be staying another night and will have an nephrostomy tube change tomorrow morning.
[2019-09-20 15:23] VITALS: BP 113/65
[2019-09-20] MEDS: piperacillin/tazo 3.375gm/50ml 50 ML IV SCH (16:14)
[2019-09-20 18:00] VITALS: BP 134/80
--- NOTE | 2019-09-20 18:43 | NUR ---
Problems reprioritized. Patient report given, questions answered & plan of care reviewed with GABY ROLLINS.
[2019-09-20] MEDS: Melatonin 3mg tablet PO SCH (20:04)
[2019-09-20] MEDS: rivaroxaban 20mg tablet PO SCH (20:12)
[2019-09-20 22:00] VITALS: BP 109/65
[2019-09-21] MEDS: piperacillin/tazo 3.375gm/50ml 50 ML IV SCH ×3 (01:02→16:12)
--- NOTE | 2019-09-21 01:35 | NUR ---
CHANGED TOP OSTOMY BAG WITH NO INCIDENT, HAD LOST ITS ADHESIVE TO SKIN. PT WAS HAPPY WITH REPLACEMENT.
[2019-09-21 02:00] VITALS: BP 147/51
[2019-09-21] MEDS: normal saline 1000ml 1,000 ML IV SCH ×3 (02:23→22:23)
[2019-09-21 06:00] VITALS: BP 122/76
[2019-09-21 06:07] LABS: BASOPHILS # (AUTO) 0.1 X10'3 (0-0.2); BASOPHILS % (AUTO) 1.1 % (0-1); EOSINOPHILS % (AUTO) 10.4 % (0-6); HEMATOCRIT 24.7 % (42.0-52.0); HEMOGLOBIN 8.3 g/dl (14.0-17.9); LYMPHOCYTES # (AUTO) 0.9 X10'3 (1.1-4.8); LYMPHOCYTES % (AUTO) 9.1 % (21-51); MEAN CORPUSCULAR HEMOGLOBIN 29.1 PG (27.0-31.0); MEAN CORPUSCULAR HGB CONC 33.5 g/dL (33.0-36.5); MEAN CORPUSCULAR VOLUME 86.9 FL (78-98); MEAN PLATELET VOLUME 6.4 FL (7.4-10.4); MONOCYTES % (AUTO) 10.8 % (2-12); NEUTROPHILS # (AUTO) 6.5 X10'3 (1.8-7.7); NEUTROPHILS % (AUTO) 68.6 % (42-75); PLATELET COUNT 531 X10'3 (140-440); RED BLOOD COUNT 2.85 X10'6 (4.70-6.10); RED CELL DISTRIBUTION WIDTH 15.7 % (11.5-14.5); WHITE BLOOD COUNT 9.5 X10'3 (4.5-11.0)
[2019-09-21 06:11] LABS: ALBUMIN 2.5 G/DL (3.4-5.0); ANION GAP 11 (8-16); BLOOD UREA NITROGEN 17 MG/DL (7-18); BUN/CREATININE RATIO 12.1 (5.4-32.0); CALCIUM 8.6 MG/DL (8.5-10.1); CHLORIDE 109 MMOL/L (99-107); GLUCOSE 90 MG/DL (70-104); MAGNESIUM 1.6 MG/DL (1.5-2.4); POTASSIUM 3.5 MMOL/L (3.5-5.1); SODIUM 143 MMOL/L (135-145); TOTAL CARBON DIOXIDE 23.4 MMOL/L (24-32); eGFR 50 ML/MIN
--- NOTE | 2019-09-21 06:14 | NUR ---
REPORT GIVEN TO GABY NAJERA.
--- NOTE | 2019-09-21 06:18 | NUR ---
Patient in room PCU 3011. I have received report from Marti GRIFFIN and had the opportunity to ask questions and assume patient care.
[2019-09-21] MEDS: docusate sod 100mg capsule PO SCH ×2 (07:40→21:23)
[2019-09-21] MEDS: multivitamins, therapeutics tablet PO SCH (07:40)
[2019-09-21] MEDS: atorvastatin 10mg tablet PO SCH (07:40)
[2019-09-21] MEDS: lactobacillus rhamnosus 10,000 MMU CELLS/CAPSULE PO SCH ×2 (07:41→21:23)
[2019-09-21] MEDS: K and/or MAG REPLACEMENT MC SCH ×2 (07:49→20:00)
[2019-09-21 11:00] VITALS: BP 112/78
--- NOTE | 2019-09-21 13:08 | NUR ---
F/u (09/20): Pt PO 65-75% avg meals heart healthy diet partially meeting needs. Ensure high protein BIDBD added to meals for additional protein needs; notified. LBM 09/17. -7780ml fluid balance w/ urostomy stoma so far this admit. Current wt has no wt method and no updated wt since admit. PATRICIA unable to reach RN at this time; contacted caregiver who reports pt wt last month 64.1kg 5'11" and initially PO decreased following bladder CA return r/t nausea but PO much improved since then. This makes most accurate BMI at this time 19.7. Pt likely has stable wt though to change w/ fluid balance. Receiving MVI. Will continue to monitor for additional protein needs given sepsis. Rec: 1. continue heart healthy diet; encourage PO 2. ensure high protein BIDBD 3. monitor need for adaptive wear; hx quadriparesis 4. routine bowel care 5. weekly wts Addendum: 09/21/19 at [address] Amended: Links added.
--- NOTE | 2019-09-21 13:57 | NUR ---
Sent a page to Dr Reed regarding the placement of midline for this patient to receive IV ABX outside of the hospital . PAGER ID: [phone] MESSAGE: Joana GRIFFIN [phone], per case management, pt needs midline picc in order to receive 7 day ABX IV course, wanted to make sure with you that this is okay, thanks
[2019-09-21] MEDS ORDERED: fentaNYL/PF 50MCG/1 ML 2ML syringe ONE (14:27)
[2019-09-21] MEDS ORDERED: midazolam 2 mg/2 ml injection ONE (14:27)
[2019-09-21] MEDS ORDERED: LIDOcaine 1%/PF 5ML 10 MG/ML VIAL ONE (14:27)
--- NOTE | 2019-09-21 14:47 | NUR ---
patient left the unit to go down to angio for nephrostomy tube replacement
[2019-09-21 18:00] VITALS: BP 122/70
--- NOTE | 2019-09-21 18:33 | NUR ---
Problems reprioritized. Patient report given, questions answered & plan of care reviewed with Yamilka GRIFFIN.
--- NOTE | 2019-09-21 18:40 | NUR ---
Patient in room PCU 3011. I have received report from GABY Bernard and had the opportunity to ask questions and assume patient care.
[2019-09-21] MEDS: rivaroxaban 20mg tablet PO SCH (21:23)
[2019-09-21] MEDS: Melatonin 3mg tablet PO SCH (21:23)
[2019-09-21 22:00] VITALS: BP 124/78
[2019-09-22] MEDS: piperacillin/tazo 3.375gm/50ml 50 ML IV SCH ×3 (00:01→16:13)
[2019-09-22 04:01] VITALS: BP 135/67
[2019-09-22] MEDS: normal saline 1000ml 1,000 ML IV SCH ×2 (04:20→18:23)
[2019-09-22 06:00] VITALS: BP 115/69
--- NOTE | 2019-09-22 06:12 | NUR ---
Problems reprioritized. Patient report given, questions answered & plan of care reviewed with GABY Voss.
--- NOTE | 2019-09-22 06:26 | NUR ---
Patient in room PCU 3011. I have received report from Yamilka GRIFFIN and had the opportunity to ask questions and assume patient care.
--- NOTE | 2019-09-22 06:26 | NUR ---
Patient in room PCU 3011. I have received report from GABY Prather and had the opportunity to ask questions and assume patient care. Patient awake in bed and in no acute distress.
[2019-09-22 06:29] LABS: BASOPHILS # (AUTO) 0.1 X10'3 (0-0.2); BASOPHILS % (AUTO) 0.8 % (0-1); EOSINOPHILS # (AUTO) 1.2 X10'3 (0-0.9); HEMATOCRIT 25.1 % (42.0-52.0); HEMOGLOBIN 8.5 g/dl (14.0-17.9); LYMPHOCYTES # (AUTO) 1.2 X10'3 (1.1-4.8); LYMPHOCYTES % (AUTO) 11.3 % (21-51); MEAN CORPUSCULAR HEMOGLOBIN 29.4 PG (27.0-31.0); MEAN CORPUSCULAR HGB CONC 33.9 g/dL (33.0-36.5); MEAN CORPUSCULAR VOLUME 86.5 FL (78-98); MEAN PLATELET VOLUME 6.4 FL (7.4-10.4); MONOCYTES # (AUTO) 1.2 X10'3 (0-0.9); MONOCYTES % (AUTO) 10.9 % (2-12); NEUTROPHILS # (AUTO) 7.1 X10'3 (1.8-7.7); PLATELET COUNT 546 X10'3 (140-440); RED BLOOD COUNT 2.91 X10'6 (4.70-6.10); RED CELL DISTRIBUTION WIDTH 15.4 % (11.5-14.5); WHITE BLOOD COUNT 10.8 X10'3 (4.5-11.0)
[2019-09-22 06:46] LABS: ALBUMIN 2.5 G/DL (3.4-5.0); ANION GAP 11 (8-16); BLOOD UREA NITROGEN 14 MG/DL (7-18); BUN/CREATININE RATIO 9.3 (5.4-32.0); CALCIUM 8.7 MG/DL (8.5-10.1); CHLORIDE 109 MMOL/L (99-107); CREATININE 1.51 MG/DL (0.60-1.10); GLUCOSE 87 MG/DL (70-104); MAGNESIUM 1.6 MG/DL (1.5-2.4); POTASSIUM 3.6 MMOL/L (3.5-5.1); SODIUM 143 MMOL/L (135-145); TOTAL CARBON DIOXIDE 23.1 MMOL/L (24-32); eGFR 46 ML/MIN
[2019-09-22] MEDS: docusate sod 100mg capsule PO SCH ×2 (07:29→21:07)
[2019-09-22] MEDS: atorvastatin 10mg tablet PO SCH (07:29)
[2019-09-22] MEDS: lactobacillus rhamnosus 10,000 MMU CELLS/CAPSULE PO SCH ×2 (07:30→21:07)
[2019-09-22] MEDS: multivitamins, therapeutics tablet PO SCH (07:30)
[2019-09-22] MEDS: K and/or MAG REPLACEMENT MC SCH ×2 (07:42→20:00)
[2019-09-22 11:00] VITALS: BP 90/58
[2019-09-22 15:00] VITALS: BP 111/75
--- NOTE | 2019-09-22 17:28 | NUR ---
Problems reprioritized. Patient report given, questions answered & plan of care reviewed with Shanika GRIFFIN.
[2019-09-22 18:00] VITALS: BP 137/74
--- NOTE | 2019-09-22 18:21 | NUR ---
Student documentation: I have reviewed and agree with all interventions, assessments performed and documented by GABY Blood. Addendum: 09/22/19 at 1822 by Shanika Britt RN [facility]
--- NOTE | 2019-09-22 18:21 | NUR ---
Problems reprioritized. Patient report given, questions answered & plan of care reviewed with GABY Denton. Patient stable at transfer of care.
--- NOTE | 2019-09-22 18:21 | NUR ---
Student Medication Administration: For this medication-pass time frame, all medication were reviewed, dispensed, administered and documented per hospital policy by SN Caitie.
[2019-09-22] MEDS: rivaroxaban 20mg tablet PO SCH (21:07)
[2019-09-22] MEDS: Melatonin 3mg tablet PO SCH (21:07)
[2019-09-22 22:00] VITALS: BP 107/74
[2019-09-23] MEDS: piperacillin/tazo 3.375gm/50ml 50 ML IV SCH ×4 (00:11→23:22)
[2019-09-23 02:00] VITALS: BP 111/85
[2019-09-23] MEDS: normal saline 1000ml 1,000 ML IV SCH ×3 (04:23→23:23)
--- NOTE | 2019-09-23 06:18 | NUR ---
Patient in room PCU 3011. I have received report from GABY Denton and had the opportunity to ask questions and assume patient care. Patient asleep in bed and in no acute distress.
[2019-09-23 07:00] VITALS: BP 122/73
[2019-09-23] MEDS: K and/or MAG REPLACEMENT MC SCH ×2 (08:00→20:00)
--- NOTE | 2019-09-23 08:20 | NUR ---
Paged Dr. Reed regarding patient pulling nephrosomy tube out. PAGER ID: [phone] MESSAGE: [phone]. Gerardo Poole. Patient pulled nephrostomy tube out. Thank you. Shanika GRIFFIN x [phone]
--- NOTE | 2019-09-23 08:24 | NUR ---
Orders for Angio to place a nephrostomy tube put in per Dr. Reed.
[2019-09-23] MEDS: multivitamins, therapeutics tablet PO SCH (08:36)
[2019-09-23] MEDS: lactobacillus rhamnosus 10,000 MMU CELLS/CAPSULE PO SCH ×2 (08:38→20:37)
[2019-09-23] MEDS: docusate sod 100mg capsule PO SCH ×2 (08:39→20:38)
[2019-09-23] MEDS: atorvastatin 10mg tablet PO SCH (08:39)
--- NOTE | 2019-09-23 09:00 | NUR ---
patient left for IR for nephrostomy placement
[2019-09-23] MEDS ORDERED: LIDOcaine 1%/PF 5ML 10 MG/ML VIAL ONE (09:13)
[2019-09-23] MEDS ORDERED: iohexol 300 MG/1 ML 50ml polymer ONE (09:13)
--- NOTE | 2019-09-23 09:53 | NUR ---
patient back from IR
[2019-09-23 11:00] VITALS: BP 122/75
[2019-09-23 15:00] VITALS: BP 119/78
[2019-09-23 18:00] VITALS: BP 131/78
--- NOTE | 2019-09-23 18:12 | NUR ---
Problems reprioritized. Patient report given, questions answered & plan of care reviewed with GABY Luna. Patient stable at transfer of care.
--- NOTE | 2019-09-23 18:32 | NUR ---
Patient in room PCU 3011. I have received report from GABY Voss and had the opportunity to ask questions and assume patient care.
[2019-09-23] MEDS: rivaroxaban 20mg tablet PO SCH (20:37)
[2019-09-23] MEDS: Melatonin 3mg tablet PO SCH (20:38)
[2019-09-23 22:00] VITALS: BP 117/62
[2019-09-24 01:59] VITALS: BP 127/73
--- NOTE | 2019-09-24 06:03 | NUR ---
Problems reprioritized. Patient report given, questions answered & plan of care reviewed with GABY Voss.
[2019-09-24 07:00] VITALS: BP 115/74
[2019-09-24] MEDS: K and/or MAG REPLACEMENT MC SCH ×2 (08:00→20:00)
[2019-09-24] MEDS: atorvastatin 10mg tablet PO SCH (08:15)
[2019-09-24] MEDS: multivitamins, therapeutics tablet PO SCH (08:15)
[2019-09-24] MEDS: lactobacillus rhamnosus 10,000 MMU CELLS/CAPSULE PO SCH ×2 (08:15→20:50)
[2019-09-24] MEDS: docusate sod 100mg capsule PO SCH ×2 (08:15→20:50)
[2019-09-24] MEDS: piperacillin/tazo 3.375gm/50ml 50 ML IV SCH ×3 (08:20→23:49)
[2019-09-24 11:00] VITALS: BP 126/68
[2019-09-24] MEDS: normal saline 1000ml 1,000 ML IV SCH ×2 (12:37→20:23)
[2019-09-24 15:00] VITALS: BP 118/79
[2019-09-24 18:00] VITALS: BP 149/75
--- NOTE | 2019-09-24 18:22 | NUR ---
Problems reprioritized. Patient report given, questions answered & plan of care reviewed with GABY Luna. Patient stable at transfer of care.
--- NOTE | 2019-09-24 18:30 | NUR ---
Patient in room PCU 3011. I have received report from Shanika GRIFFIN and had the opportunity to ask questions and assume patient care.
[2019-09-24] MEDS: rivaroxaban 20mg tablet PO SCH (20:50)
[2019-09-24] MEDS: Melatonin 3mg tablet PO SCH (20:50)
--- NOTE | 2019-09-24 21:02 | NUR ---
MEDS GIVEN USING ADMINISTER BUTTON SCANNER IS NOT WORKING. MEDS GIVEN WITH APPLESAUCE, REPOSITIONED ONTO R SIDE AND PATIENT STATED "COMFORTABLE". CALL LIGHT IN REACH. NO DISTRESS NOTED.
[2019-09-24 22:00] VITALS: BP 128/75
--- NOTE | 2019-09-25 06:26 | NUR ---
Patient in room PCU 3011. I have received report from Cheryl GRIFFIN and had the opportunity to ask questions and assume patient care.
--- NOTE | 2019-09-25 06:38 | NUR ---
Problems reprioritized. Patient report given, questions answered & plan of care reviewed with Alecia GRIFFIN.
[2019-09-25 07:00] VITALS: BP 124/73
[2019-09-25] MEDS: piperacillin/tazo 3.375gm/50ml 50 ML IV SCH ×2 (08:19→16:10)
[2019-09-25] MEDS: K and/or MAG REPLACEMENT MC SCH ×2 (08:19→20:00)
[2019-09-25] MEDS: docusate sod 100mg capsule PO SCH ×2 (08:20→20:41)
[2019-09-25] MEDS: atorvastatin 10mg tablet PO SCH (08:20)
[2019-09-25] MEDS: lactobacillus rhamnosus 10,000 MMU CELLS/CAPSULE PO SCH ×2 (08:20→20:41)
[2019-09-25] MEDS: multivitamins, therapeutics tablet PO SCH (08:20)
[2019-09-25] MEDS: normal saline 1000ml 1,000 ML IV SCH ×3 (09:52→16:23)
--- NOTE | 2019-09-25 10:25 | NUR ---
Problems reprioritized. Patient report given, questions answered & plan of care reviewed with Kera RN. Patient stable at transfer of care.
--- NOTE | 2019-09-25 11:00 | NUR ---
Patient in room PCU 3011. I have received report from Alecia GRIFFIN and had the opportunity to ask questions and assume patient care.
[2019-09-25 11:44] VITALS: BP 99/68
[2019-09-25 15:58] VITALS: BP 117/45
--- NOTE | 2019-09-25 18:17 | NUR ---
Problems reprioritized. Patient report given, questions answered & plan of care reviewed with Usha GRIFFIN.
[2019-09-25 19:00] VITALS: BP 124/63
[2019-09-25] MEDS: Melatonin 3mg tablet PO SCH (20:41)
[2019-09-25] MEDS: rivaroxaban 20mg tablet PO SCH (20:41)
[2019-09-25 23:00] VITALS: BP 110/70
[2019-09-26] MEDS: normal saline 1000ml 1,000 ML IV SCH ×3 (00:29→22:23)
[2019-09-26] MEDS: piperacillin/tazo 3.375gm/50ml 50 ML IV SCH ×4 (00:29→23:28)
[2019-09-26 03:00] VITALS: BP 109/72
--- NOTE | 2019-09-26 06:10 | NUR ---
Patient in room PCU 3011. I have received report from Usha GRIFFIN and had the opportunity to ask questions and assume patient care.
[2019-09-26 07:30] VITALS: BP 109/71
[2019-09-26] MEDS: atorvastatin 10mg tablet PO SCH (08:15)
[2019-09-26] MEDS: lactobacillus rhamnosus 10,000 MMU CELLS/CAPSULE PO SCH ×2 (08:15→21:52)
[2019-09-26] MEDS: multivitamins, therapeutics tablet PO SCH (08:15)
[2019-09-26] MEDS: docusate sod 100mg capsule PO SCH ×2 (08:15→21:52)
[2019-09-26] MEDS: K and/or MAG REPLACEMENT MC SCH ×2 (08:17→20:00)
[2019-09-26 12:07] VITALS: BP 111/66
--- NOTE | 2019-09-26 12:16 | NUR ---
F/u (09/25): Pt PO 75% avg meals meeting needs. LBM 09/23. No nutrition concerns at this time. ONS still pending verification at this time so unable to send w/ meals though sepsis resolved per MD and good PO. Will continue to monitor. Rec: 1. continue heart healthy diet; encourage PO 2. ensure high protein BIDBD 3. routine bowel care 4. weekly wts Addendum: 09/26/19 at [address] Amended: Links added.
[2019-09-26] MEDS: HYDROcodone/acetaminophen 5mg/325mg tablet PO PRN (15:31)
[2019-09-26 16:13] VITALS: BP 103/67
--- NOTE | 2019-09-26 18:28 | NUR ---
Problems reprioritized. Patient report given, questions answered & plan of care reviewed with Paloma GRIFFIN. Patient stable at transfer of care.
--- NOTE | 2019-09-26 18:30 | NUR ---
Patient in room PCU 3011. I have received report from GABY Alston and had the opportunity to ask questions and assume patient care.
[2019-09-26 19:00] VITALS: BP 103/62
[2019-09-26] MEDS: rivaroxaban 20mg tablet PO SCH (21:52)
[2019-09-26] MEDS: Melatonin 3mg tablet PO SCH (21:54)
--- NOTE | 2019-09-26 22:38 | NUR ---
Problems reprioritized. Patient report given, questions answered & plan of care reviewed with GABY Lopez.
--- NOTE | 2019-09-26 22:45 | NUR ---
Patient in room PCU 3011. I have received report from GABY Dow and had the opportunity to ask questions and assume patient care.
[2019-09-27 01:45] VITALS: BP 108/70
--- NOTE | 2019-09-27 02:19 | NUR ---
Urostomy device changed.
[2019-09-27 06:00] VITALS: BP 108/73
--- NOTE | 2019-09-27 06:28 | NUR ---
Problems reprioritized. Patient report given, questions answered & plan of care reviewed with GABY Morocho.
[2019-09-27] MEDS: HYDROcodone/acetaminophen 5mg/325mg tablet PO PRN (06:32)
--- NOTE | 2019-09-27 06:40 | NUR ---
Patient in room PCU 3011. I have received report from GABY Lopez and had the opportunity to ask questions and assume patient care.
[2019-09-27] MEDS: K and/or MAG REPLACEMENT MC SCH (08:00)
[2019-09-27] MEDS: docusate sod 100mg capsule PO SCH (08:23)
[2019-09-27] MEDS: lactobacillus rhamnosus 10,000 MMU CELLS/CAPSULE PO SCH (08:24)
[2019-09-27] MEDS: atorvastatin 10mg tablet PO SCH (08:24)
[2019-09-27] MEDS: multivitamins, therapeutics tablet PO SCH (08:24)
[2019-09-27] MEDS: piperacillin/tazo 3.375gm/50ml 50 ML IV SCH (08:59)
[2019-09-27] MEDS: normal saline 1000ml 1,000 ML IV SCH (09:07)
[2019-09-27 11:00] VITALS: BP_SYST 87; BP_SYST 90; BP_DIAS 56
--- NOTE | 2019-09-27 14:35 | NUR ---
Patient stable for discharge. All instructions were reviewed and called to Brisa (caregiver), any questions were answered. All belongings were collected and sent with patient. PIV discontinued, cannula intact. No tele was on patient at time of discharge. Mode of transportation was [employer]. [employer] personnel wheeled patient to vehicle.
== END 2019-09-27 14:25 | disposition home health service (06) | DRG 871 ==
LOC: ER 14:13 → ED HOLD 18:23 → EDBEDREQ 20:16 → PCU 3S 21:07
PROVIDERS: ADMIT Internal Medicine; ATTEND Family Medicine
PROC: 0T25X0Z Change Drainage Device in Kidney, External Approach (ICD-10-PCS; principal; 2019-09-21)
PROC: BT121ZZ Fluoroscopy of Left Kidney using Low Osmolar Contrast (ICD-10-PCS; 2019-09-21)
PROC: 0T9130Z Drainage of Left Kidney with Drainage Device, Percutaneous Approach (ICD-10-PCS; 2019-09-23)
DX: A41.9 Sepsis, unspecified organism (principal); G82.50 Quadriplegia, unspecified; N39.0 Urinary tract infection, site not specified; N17.9 Acute kidney failure, unspecified; D63.8 Anemia in other chronic diseases classified elsewhere; Z96.641 Presence of right artificial hip joint; N18.9 Chronic kidney disease, unspecified; B95.2 Enterococcus as the cause of diseases classified elsewhere; B96.20 Unspecified Escherichia coli [E. coli] as the cause of diseases classified elsewhere; F41.9 Anxiety disorder, unspecified; K21.9 Gastro-esophageal reflux disease without esophagitis; E78.5 Hyperlipidemia, unspecified; Z79.01 Long term (current) use of anticoagulants; Z85.51 Personal history of malignant neoplasm of bladder; Z90.49 Acquired absence of other specified parts of digestive tract; Z93.6 Other artificial openings of urinary tract status
CPT/HCPCS: 36415; 50435; 50693; 71045; 80048; 80053; 81001; 83605; 83735; 84145; 85025; 87040; 87077; 87081; 87088; 87186; 93005; 97110; 97116; 97162; 97530; 99285; C1729; C1769; C2617; G0378; J0696; J2250; J2543; J3010; J3370; J7030; Q9967

== ENCOUNTER 2019-11-04 09:09 | Day surgery (SDC) | payer MEDICARE, MEDICAID ==
[~2019-11-04] VITALS: Ht 182.9 cm; Wt 68.1 kg
[~2019-11-04 09:09] MED LIST changes: -LEVO250T58 PO; -METH1TAB32 PO
[2019-11-04 09:30] VITALS: BP 112/76
[2019-11-04] MEDS ORDERED: ceFAZolin 1GM/D5W- ADD-VANTAGE 50 ML IV ONE (09:35)
[2019-11-04] MEDS ORDERED: normal saline 1000ml 1,000 ML IV PRN (09:40)
[2019-11-04 10:00] VITALS: BP 112/76
[2019-11-04] MEDS ORDERED: BACL10TA2 PO (10:00)
[2019-11-04] MEDS ORDERED: LIDOcaine 1%/PF 5ML 10 MG/ML VIAL ONE (10:22)
[2019-11-04] MEDS ORDERED: fentaNYL/PF 50MCG/1 ML 2ML syringe ONE (10:22)
[2019-11-04] MEDS ORDERED: iohexol 300 MG/1 ML 50ml polymer ONE (10:22)
[2019-11-04 11:45] VITALS: BP 105/75
[2019-11-04 12:00] VITALS: BP 87/59
[2019-11-04 12:15] VITALS: BP 96/64
== END 2019-11-04 12:45 | disposition home or self-care (01) ==
LOC: SSTAY O 09:09
PROVIDERS: ATTEND Radiology Vascular & Interventional Radiology
DX: Z46.6 Encounter for fitting and adjustment of urinary device (principal); N13.2 Hydronephrosis with renal and ureteral calculous obstruction; G80.9 Cerebral palsy, unspecified; Z85.51 Personal history of malignant neoplasm of bladder
CPT/HCPCS: 50693; C1729; C1769; J0690; J3010; Q9967